=== PATIENT | male | born 1960 | race Two or more races ===

== ENCOUNTER → 2024-08-20 | Outpatient (CLI) | payer BC, SELFPAY ==
[2024-08-20 08:48] LABS: Basophils # (Auto) 0.1 Thou/mm3 (0.0-0.2); Basophils % (Auto) 1 % (0-2.5); Eosinophils # (Auto) 0.3 Thou/mm3 (0.0-0.5); Eosinophils % (Auto) 3 % (0-10); Hematocrit 42.2 % (41.0-53.0); Hemoglobin 14.1 g/dL (13.5-16.0); Immature Granulocytes % (Auto) 1 % (0-0); Immature Granulocytes Auto 0.07 Thou/mm3 (0.00-0.00); Lymphocytes # (Auto) 2.2 Thou/mm3 (1.0-4.8); Lymphocytes % (Auto) 27 % (10-50); Mean Corpuscular HGB Conc 33.4 g/dl (31.0-37.0); Mean Corpuscular Hemoglobin 28.7 pg (25.0-35.0); Mean Corpuscular Volume 86 fL (80-100); Monocytes # (Auto) 0.7 Thou/mm3 (0.0-0.8); Monocytes % (Auto) 8 % (0-12); Neutrophils # (Auto) 4.8 Thou/mm3 (1.8-7.7); Neutrophils % (Auto) 60 % (37-80); Nucleated Red Blood Cell % 0 /100 WBC (0); Platelet Count 245 Thou/mm3 (140-440); RDW Standard Deviation 39.9 fL (35.1-43.9); Red Blood Count 4.91 Miln/mm3 (4.50-5.90)
[2024-08-20 08:49] LABS: Prostate Specific Antigen 0.54 ng/mL (0-4.00)
[2024-08-20 08:56] LABS: Vitamin D 25 Hydroxy Total 30.4 ng/mL (7.3-40.2)
[2024-08-20 08:59] LABS: Alanine Aminotransferase 46 U/L (10-49); Albumin, Serum 4.4 gm/dL (3.4-4.8); Albumin/Globulin Ratio 1.8 (1.2-2.2); Alkaline Phosphatase 115 U/L (46-116); Anion Gap 8 (7-16); Aspartate Amino Transferase 24 U/L (0-34); BUN/Creatinine Ratio 12 Ratio (12-20); Bilirubin,Total 0.4 mg/dL (0.3-1.2); Blood Urea Nitrogen 13 mg/dL (9-23); Calcium 9.3 mg/dL (8.3-10.6); Calcium (Corrected) 9.3 mg/dL (8.5-10.1); Carbon Dioxide 28.3 mMol/L (20.0-31.0); Cardiac Risk Estimate 3.5 RATIO (4.0-6.7); Chloride 103 mMol/L (98-107); Cholesterol 139 mg/dL (132-200); Creatinine (Component) 1.1 mg/dL (0.6-1.3); Free T4 (Free Thyroxine) 1.16 ng/dL (0.89-1.76); Globulin 2.5 gm/dL (2.3-3.5); Glucose 191 mg/dL (74-106); HDL Cholesterol 40 mg/dL (40-60); LDL Cholesterol,Calculated 74 mg/dL (0-130); Osmolality,Calculated 282 (275-295); Potassium 4.8 mMol/L (3.4-5.1); Sodium 139 mMol/L (136-145); Thyroid Stimulating Hormone 2.24 uIU/mL (0.55-4.78); Total Protein 6.9 gm/dL (5.7-8.2); Triglycerides 125 mg/dL (30-150); eGFR > 60 See Note
[2024-08-20 09:08] LABS: Glucose Estimated Average 189 mg/dL (80-131); Hemoglobin A1C 8.2 % Hgb (4.8-6.0)
== END | disposition home or self-care (01) ==
PROVIDERS: PCP Internal Medicine; Referring Provider Internal Medicine; Visit Provider Internal Medicine
DX: Z00.00 Encounter for general adult medical examination without abnormal findings (principal); N40.1 Benign prostatic hyperplasia with lower urinary tract symptoms; E55.9 Vitamin D deficiency, unspecified; E03.9 Hypothyroidism, unspecified
CPT/HCPCS: 36415; 80053; 80061; 82306; 83036; 84153; 84439; 84443; 85025

== ENCOUNTER → 2024-11-01 | Outpatient (CLI) | payer BC, SELFPAY ==
[2024-11-01 15:32] LABS: Glucose Estimated Average 186 mg/dL (80-131); Hemoglobin A1C 8.1 % Hgb (4.8-6.0)
== END | disposition home or self-care (01) ==
LOC: COPL 14:26
PROVIDERS: PCP Internal Medicine; Referring Provider Internal Medicine; Visit Provider Internal Medicine
DX: E11.9 Type 2 diabetes mellitus without complications (principal)
CPT/HCPCS: 36415; 83036